=== PATIENT | male | born 1960 | race Native Hawaiian/Other Pacific Islander ===

== ENCOUNTER 2019-04-27 17:34 | Emergency (ER) | payer OTHER ==
[~2019-04-27] VITALS: Ht 182.9 cm; Wt 99.8 kg
[2019-04-27 20:04] VITALS: BP 158/79; TEMP 98.6
== END 2019-04-27 20:05 | disposition home or self-care (01) ==
LOC: ED 17:34
PROC: 0HQFXZZ Repair Right Hand Skin, External Approach (ICD-10-PCS; principal; 2019-04-27)
DX: S61.210A Laceration without foreign body of right index finger without damage to nail, initial encounter (principal); S30.811A Abrasion of abdominal wall, initial encounter; S80.812A Abrasion, left lower leg, initial encounter; S80.811A Abrasion, right lower leg, initial encounter; W54.0XXA Bitten by dog, initial encounter
CPT/HCPCS: 36415; 90471; 90715; 96372; 99283; 99284; J0690; J1885; J2001